=== PATIENT | female | born 1955 | race Caucasian/White ===

== ENCOUNTER → 2017-01-14 | Outpatient (CLI) | payer OTHER ==
--- NOTE | 2017-01-14 12:08 | REPMRS ---
Patient History The patient states she has not had a clinical breast exam in over a year. No known family history of cancer. Took estrogen for 4 months. Digital Mammo Screening Bilat: January 14, 2017 - Exam #: [id number] Bilateral CC and MLO view(s) were taken. Technologist: Susan Campbell Technologist Prior study comparison: January 09, 2016, bilateral digital mammo screening bilat performed at [facility]. December 27, 2014, bilateral digital mammo screening bilat performed at [facility]. FINDINGS: There are scattered fibroglandular densities. There has been no change in the appearance of the mammogram from the prior studies. There is a mild amount of scattered fibroglandular density which is fairly symmetric. There is no interval development of dominant mass, architectural distortion, or clustered microcalcification suggestive of malignancy. ASSESSMENT: BI-RADS/ACR category 1 mammogram. Negative. Recommendation Routine screening mammogram in 1 year (for women over age 40). This mammogram was interpreted with the aid of an FDA-approved computer-aided dectection system. Electronically Signed By: Pietro Phipps MD 01/14/17 [id number]
== END ==
LOC: M RAD 10:30
PROVIDERS: ATTEND Nurse Practitioner Family
DX: Z12.31 Encounter for screening mammogram for malignant neoplasm of breast (principal); Z79.899 Other long term (current) drug therapy

== ENCOUNTER → 2018-02-07 | Outpatient (CLI) | payer OTHER | LOC: M RAD 09:45 | DX: Z12.31 Encounter for screening mammogram for malignant neoplasm of breast (principal) | CPT/HCPCS: 77067 ==

== ENCOUNTER → 2019-02-12 | Outpatient (CLI) | payer OTHER ==
--- NOTE | 2019-02-12 13:56 | REPMRS ---
Patient History The patient states she has not had a clinical breast exam in over a year. No known family history of cancer. Took estrogen for 4 months. Digital Mammo Screening Bilat: February 12, 2019 - Exam #: [id number] Bilateral CC and MLO view(s) were taken. Technologist: Anna Bustillos, Technologist Prior study comparison: February 07, 2018, bilateral digital mammo screening bilat performed at [facility]. January 14, 2017, bilateral digital mammo screening bilat performed at [facility]. FINDINGS: The breast tissue is heterogeneously dense. This may lower the sensitivity of mammography. There has been no change in the appearance of the mammogram from the prior studies. There is a moderate amount of residual fibroglandular tissue which is fairly symmetric. There is no interval development of dominant mass, areas of architectural distortion, or clustered microcalcification typical of malignancy. Assessment: BI-RADS/ACR category 1 mammogram. Negative Mammogram. Recommendation Routine screening mammogram in 1 year (for women over age 40). This mammogram was interpreted with the aid of an FDA-approved computer-aided dectection system. Electronically Signed By: Osmar Obando MD 02/12/19 [id number]
== END ==
LOC: M RAD 10:11
PROVIDERS: ATTEND Internal Medicine
DX: Z12.31 Encounter for screening mammogram for malignant neoplasm of breast (principal)

== ENCOUNTER → 2019-02-26 | Outpatient (CLI) | payer OTHER ==
[~2019-02-26] MED LIST: ISOVUE-370 76% 100ML VIAL (Q9967) As Ordered ONE
--- NOTE | 2019-02-27 17:31 | REP ---
Clinical: Solitary pulmonary nodule. Technique: Axial contrast enhanced images from the thoracic inlet to the upper abdomen with coronal and sagittal re-formations. Comparison: None. Findings: Mild biapical scarring and scattered chronic age-related interstitial changes. No consolidation, obvious nodule or mass lesion appreciated. No pleural effusion. No pneumothorax. Tracheobronchial tree is patent. No obvious axillary, hilar, or mediastinal adenopathy. The mediastinum demonstrates minimal atherosclerotic changes without aortic aneurysm/dissection, cardiomegaly or pericardial effusion. No focal osseous abnormality appreciated. Limited upper abdomen demonstrates normal bilateral adrenal glands. Impression: No obvious acute mediastinal or pleuroparenchymal process appreciated. No prior examination is available for comparison. Electronically Signed by Sammy Quintana MD 02/27/2019 05:22 P
== END ==
LOC: M RAD 09:24
PROVIDERS: ATTEND Student in an Organized Health Care Education/Training Program
DX: Z87.09 Personal history of other diseases of the respiratory system (principal)
CPT/HCPCS: 71260; Q9967

== ENCOUNTER → 2019-06-01 | Outpatient (REF) | payer OTHER | LOC: M SFHCLERA 12:17 | PROVIDERS: ATTEND Family Medicine | DX: R20.2 Paresthesia of skin (principal); Z53.9 Procedure and treatment not carried out, unspecified reason ==

== ENCOUNTER → 2020-03-09 | Outpatient (CLI) | payer MEDICARE, OTHER ==
--- NOTE | 2020-03-09 14:50 | REPMRS ---
Patient History The patient states she has not had a clinical breast exam in over a year. No known family history of cancer. Took estrogen for 4 months. Digital Woman Screen Mammo: March 09, 2020 - Exam #: [id number] Bilateral CC and MLO view(s) were taken. Technologist: Anna Bustillos, Technologist Prior study comparison: February 12, 2019, bilateral digital mammo screening bilat, performed at [facility]. February 07, 2018, bilateral digital mammo screening bilat, performed at [facility]. January 14, 2017, bilateral digital mammo screening bilat, performed at [facility]. FINDINGS: The breast tissue is almost entirely fat. The Volpara volumetric breast density category is: A. There has been no change in the appearance of the mammogram from the prior studies. There is no interval development of dominant mass, architectural distortion, or grouped microcalcification typical of malignancy. 3-D tomosynthesis shows no additional findings. Assessment: BI-RADS/ACR category 1 mammogram. Negative Mammogram. Recommendation Routine screening mammogram of both breasts in 1 year (for women over age 40). This patient's Lifetime Breast Cancer RIsk is estimated at 5.4 %. This mammogram was interpreted with the aid of an FDA-approved computer-aided dectection system. Electronically Signed By: Pietro Phipps MD 03/09/20 [id number]
== END ==
LOC: M WHC 13:59
PROVIDERS: ATTEND Family Medicine
DX: Z12.31 Encounter for screening mammogram for malignant neoplasm of breast (principal)

== ENCOUNTER → 2021-03-03 | Outpatient (CLI) | payer MEDICARE, OTHER ==
--- NOTE | 2021-03-03 13:57 | REPMRS ---
Patient History The patient states she has not had a clinical breast exam in over a year. Patient is postmenopausal. Family history of prostate cancer at age 45 in brother. Took estrogen for 4 months. Patient states no breast complaints today. Patient has signed MRS History Sheet. Digital Woman Screen Mammo: March 03, 2021 - Exam #: [id number] Bilateral CC and MLO view(s) were taken. Technologist: Susan Campbell, Technologist Prior study comparison: March 09, 2020, bilateral digital woman screen mammo performed at [facility] and [facility]. February 12, 2019, bilateral digital mammo screening bilat, performed at [facility]. February 07, 2018, bilateral digital mammo screening bilat, performed at [facility]. FINDINGS: There are scattered fibroglandular densities. The Volpara volumetric breast density category is:B. There has been no change in the appearance of the mammogram from the prior studies. There is a mild amount of scattered fibroglandular density which is fairly symmetric. There is no interval development of dominant mass, architectural distortion, or grouped microcalcification suggestive of malignancy. 3-D tomosynthesis shows no additional findings. Assessment: BI-RADS/ACR category 1 mammogram. Negative Mammogram. Recommendation Routine screening mammogram of both breasts in 1 year (for women over age 40). This patient's [facility] Lifetime Breast Cancer Risk is estimated at 5.1 %. This mammogram was interpreted with the aid of an FDA-approved computer-aided dectection system. Electronically Signed By: Pietro Phipps MD 03/03/21 [id number]
== END ==
LOC: M WHC 12:48
PROVIDERS: ATTEND Nurse Practitioner Family
DX: Z12.31 Encounter for screening mammogram for malignant neoplasm of breast (principal); Z80.42 Family history of malignant neoplasm of prostate

== ENCOUNTER → 2021-03-29 | Outpatient (CLI) | payer MEDICARE, OTHER ==
--- NOTE | 2021-03-29 16:31 | DEXAMM ---
INDICATION: AGE RELATED OSTEOPOROSIS/M81.0. COMPARISON: 03/12/2019, 07/27/2013. TECHNIQUE: Bone density was measured using dual-energy x-ray absorptiometry (DEXA). FINDINGS: AP SPINE L1-L4 BMD 0.905 g/cm2 Young Adult T-Score -2.3 Age Matched Z-Score -0.7. LT FEMUR, TOTAL BMD 0.804 g/cm2 Young Adult T-Score -1.6 Age Matched Z-Score -0.4. LT NECK BMD 0.712 g/cm2 Young Adult T-Score -2.3 Age Matched Z-Score -0.8. RT FEMUR, TOTAL BMD 0.808 g/cm2 Young Adult T-Score -1.6 Age Matched Z-Score -0.3. RT NECK BMD 0.733 g/cm2 Young Adult T-Score -2.2 Age Matched Z-Score -0.7. IMPRESSION: There is low bone density of the spine. There is low bone density of the left hip. There is low bone density of the right hip. The density of the spine has increased 28.4% since the initial exam on 07/27/2013. The density of the spine increased 0.6% since most recent exam on 03/12/2019. The density of the left hip has increased 7.9% since initial exam on 07/27/2013. The density of the left hip has increased 2.2% since most recent exam on 03/12/2019. The density of the right hip has increased 6.6% since the initial exam on 07/27/2013. The density of the right hip has decreased 0.4% since the most recent exam on 03/12/2019. FOLLOW-UP: Recommendation for the next bone density exam: 2 years. <Electronically signed by Osmar Obando > 03/29/21 [id number]
== END ==
LOC: M WHC 13:08
PROVIDERS: ATTEND Nurse Practitioner Family
DX: M81.0 Age-related osteoporosis without current pathological fracture (principal); M85.88 Other specified disorders of bone density and structure, other site; M85.851 Other specified disorders of bone density and structure, right thigh; M85.852 Other specified disorders of bone density and structure, left thigh

== ENCOUNTER → 2022-04-02 | Outpatient (CLI) | payer MEDICARE, OTHER | LOC: M WHC 12:06 | PROVIDERS: ATTEND Student in an Organized Health Care Education/Training Program | DX: Z12.31 Encounter for screening mammogram for malignant neoplasm of breast (principal); R92.2 Inconclusive mammogram ==

== ENCOUNTER → 2022-04-24 | Outpatient (CLI) | payer MEDICARE, OTHER | LOC: M WHC 09:51 | PROVIDERS: ATTEND Student in an Organized Health Care Education/Training Program | DX: N63.12 Unspecified lump in the right breast, upper inner quadrant (principal) | CPT/HCPCS: 76642; 77065; G0279 ==

== ENCOUNTER 2022-12-30 16:07 | Emergency (ER) | payer MEDICARE, OTHER ==
[~2022-12-30] VITALS: Ht 172.7 cm; Wt 92.7 kg
[2022-12-30 18:21] LABS: BASO % 0.3 % (0.0-1.0); EOS % 0.3 % (0.0-3.0); HEMATOCRIT 39.2 % (36.0-47.0); HEMOGLOBIN 13.2 g/dl (12.0-15.5); LYMPH # 1.5 10^3/uL (1.5-5.0); LYMPH % 12.5 % (24.0-44.0); MEAN CORPUSCULAR HEMOGLOBIN 32.8 pg (27.0-33.0); MEAN CORPUSCULAR HGB CONC 33.7 g/dl (32.0-36.5); MEAN CORPUSCULAR VOLUME 97.5 fl (80.0-96.0); MONO # 0.7 10^3/uL (0.0-0.8); MONO % 5.8 % (2.0-8.0); NEUTROPHILS # 9.6 10^3/uL (1.5-8.5); NEUTROPHILS % 80.7 % (36.0-66.0); PLATELET COUNT, AUTOMATED 245 10^3/uL (150-450); RED BLOOD COUNT 4.02 10^6/uL (4.00-5.40); WHITE BLOOD COUNT 11.9 10^3/uL (4.0-10.0)
[2022-12-30 18:32] LABS: INR 0.87
[2022-12-30 18:33] LABS: PARTIAL THROMBOPLASTIN TIME 28.5 SECONDS (24.8-34.2)
[2022-12-30 18:49] LABS: BLOOD UREA NITROGEN 15 MG/DL (9-23); CALCIUM LEVEL 9.4 MG/DL (8.3-10.6); CARBON DIOXIDE LEVEL 30 MMOL/L (20-31); CHLORIDE LEVEL 106 MMOL/L (98-107); CREATININE FOR GFR 0.86 MG/DL (0.55-1.30); GLOMERULAR FILTRATION RATE > 60.0 (>45); GLUCOSE, FASTING 105 MG/DL (74-106); POTASSIUM SERUM 4.3 MMOL/L (3.5-5.1); SODIUM LEVEL 144 MMOL/L (136-145)
[2022-12-30 19:05] LABS: RSV AMPLIFICATION NEGATIVE (NEGATIVE)
[2022-12-30 20:23] VITALS: BP 142/68
[2023-01-01] MEDS ORDERED: CALC1TAB42 PO (15:06)
[2023-01-01] MEDS ORDERED: SYNT50TA PO (15:06)
[2023-01-01] MEDS ORDERED: VITA-199 PO (15:06)
[2023-01-01] MEDS ORDERED: PRAV40TA2 PO (15:06)
[2023-01-01] MEDS ORDERED: COZA50TA PO (15:06)
== END 2022-12-30 20:26 | disposition home or self-care (01) ==
LOC: M ED 16:07
DX: S52.001A Unspecified fracture of upper end of right ulna, initial encounter for closed fracture (principal); W11.XXXA Fall on and from ladder, initial encounter; Y92.009 Unspecified place in unspecified non-institutional (private) residence as the place of occurrence of the external cause; E03.9 Hypothyroidism, unspecified

== ENCOUNTER 2023-01-02 06:25 | Day surgery (SDC) | payer MEDICARE, OTHER ==
[~2023-01-02] VITALS: Ht 172.7 cm; Wt 91.2 kg
[~2023-01-02 06:25] MED LIST changes: +CALC1TAB42 PO; +COZA50TA PO; -ISOVUE-370 76% 100ML VIAL (Q9967) As Ordered ONE; +LR 1,000 ML IV SCH; +PRAV40TA2 PO; +SYNT50TA PO; +VITA-199 PO
[2023-01-02] MEDS ORDERED: propofoL 200 MG/20 ML VIAL As Ordered ONE (06:58)
[2023-01-02] MEDS ORDERED: ONDANSETRON 4MG 2ML VIAL As Ordered ONE (06:58)
[2023-01-02] MEDS ORDERED: LIDOCAINE 2% 100MG/5ML SDV (FOR ANES.) As Ordered ONE (06:58)
[2023-01-02] MEDS ORDERED: ceFAZolin SOD 2 GM in IV 1 EA IV ONE (07:45)
[2023-01-02] MEDS ORDERED: ceFAZolin 1GM VIAL As Ordered ONE (08:13)
[2023-01-02] MEDS ORDERED: fentaNYL 100 MCG/2 ML INJECTION As Ordered ONE (08:21)
[2023-01-02] MEDS ORDERED: MIDAZOLAM INJ 2MG/2ML VIAL As Ordered ONE (08:21)
[2023-01-02] MEDS ORDERED: SUGAMMADEX SODIUM 500 MG/5 ML VIAL (BRIDION) As Ordered ONE (08:21)
[2023-01-02] MEDS ORDERED: ROCURONIUM BROMIDE 50MG/5ML VIAL As Ordered ONE (08:21)
[2023-01-02] MEDS ORDERED: ACETAMINOPHEN 1000MG 100ML IV BAG As Ordered ONE (09:03)
[2023-01-02] MEDS ORDERED: BACITRACIN OINTMENT 30GM TUBE As Ordered ONE (09:49)
[2023-01-02] MEDS ORDERED: KETOROLAC 60MG 2ML VIAL As Ordered ONE (10:05)
[2023-01-02] MEDS ORDERED: BUPIVACAINE HCL 0.25% 30ML VIAL As Ordered ONE (10:05)
[2023-01-02] MEDS ORDERED: ONDANSETRON 4MG 2ML VIAL IV PRN (10:30)
[2023-01-02] MEDS ORDERED: MORPHINE 2 MG/ML 1ML VIAL IV PRN (10:30)
[2023-01-02] MEDS ORDERED: fentaNYL 100 MCG/2 ML INJECTION IV PRN (10:30)
[2023-01-02] MEDS ORDERED: PERC5TAB12 PO (10:58)
[2023-01-02] MEDS: oxyCODONE 5MG TAB PO PRN ×2 (11:20→11:45)
[2023-01-02 11:50] VITALS: BP 142/72
== END 2023-01-02 12:25 | disposition home or self-care (01) ==
LOC: M SDC 06:25
PROVIDERS: ATTEND Orthopaedic Surgery Hand Surgery
DX: S52.031A Displaced fracture of olecranon process with intraarticular extension of right ulna, initial encounter for closed fracture (principal); W19.XXXA Unspecified fall, initial encounter; Y92.89 Other specified places as the place of occurrence of the external cause; Y93.9 Activity, unspecified; Y99.9 Unspecified external cause status; I10 Essential (primary) hypertension; E03.9 Hypothyroidism, unspecified; Z79.899 Other long term (current) drug therapy
CPT/HCPCS: 24685; 76000; C1713; J0131; J0690; J1100; J1885; J2250; J2405; J3010

== ENCOUNTER → 2023-01-14 | Outpatient (CLI) | payer MEDICARE, OTHER ==
[~2023-01-14] MED LIST changes: -LR 1,000 ML IV SCH; +PERC5TAB12 PO
== END ==
LOC: M SOG 10:49
PROVIDERS: ATTEND Physician Assistant
DX: S52.031A Displaced fracture of olecranon process with intraarticular extension of right ulna, initial encounter for closed fracture (principal); X58.XXXA Exposure to other specified factors, initial encounter; Y92.9 Unspecified place or not applicable; Y93.9 Activity, unspecified; Y99.9 Unspecified external cause status

== ENCOUNTER → 2023-01-31 | Outpatient (CLI) | payer MEDICARE, OTHER | LOC: M EKG 12:06 | PROVIDERS: ATTEND Student in an Organized Health Care Education/Training Program | DX: R94.31 Abnormal electrocardiogram [ECG] [EKG] (principal) ==

== ENCOUNTER → 2023-02-14 | Outpatient (CLI) | payer MEDICARE, OTHER ==
[~2023-02-14] MED LIST changes: -COZA50TA PO; +LOSA-528 PO
== END ==
LOC: M SOG 08:52
PROVIDERS: ATTEND Physician Assistant
DX: S52.031D Displaced fracture of olecranon process with intraarticular extension of right ulna, subsequent encounter for closed fracture with routine healing (principal)

== ENCOUNTER → 2023-04-04 | Outpatient (CLI) | payer MEDICARE, OTHER | LOC: M WHC 12:29 | PROVIDERS: ATTEND Nurse Practitioner Family | DX: M81.0 Age-related osteoporosis without current pathological fracture (principal) ==

== ENCOUNTER → 2023-04-22 | Outpatient (CLI) | payer MEDICARE, OTHER ==
[2023-04-22 11:27] LABS: BASO % 0.6 % (0.0-1.0); EOS # 0.1 10^3/uL (0.0-0.5); EOS % 1.6 % (0.0-3.0); HEMATOCRIT 41.1 % (36.0-47.0); HEMOGLOBIN 13.7 g/dl (12.0-15.5); LYMPH # 2.4 10^3/uL (1.5-5.0); MEAN CORPUSCULAR HEMOGLOBIN 31.9 pg (27.0-33.0); MEAN CORPUSCULAR HGB CONC 33.3 g/dl (32.0-36.5); MEAN CORPUSCULAR VOLUME 95.8 fl (80.0-96.0); MONO # 0.5 10^3/uL (0.0-0.8); NEUTROPHILS # 2.2 10^3/uL (1.5-8.5); NEUTROPHILS % 42.6 % (36.0-66.0); PLATELET COUNT, AUTOMATED 254 10^3/uL (150-450); RED BLOOD COUNT 4.29 10^6/uL (4.00-5.40); WHITE BLOOD COUNT 5.1 10^3/uL (4.0-10.0)
[2023-04-22 11:57] LABS: ALBUMIN 3.7 G/DL (3.2-5.2); ALKALINE PHOSPHATASE 84 U/L (46-116); ALT/SGPT 36 U/L (7.0-40); AST/SGOT 16 U/L (<34); BILIRUBIN,TOTAL 0.4 MG/DL (0.3-1.2); BLOOD UREA NITROGEN 17 MG/DL (9-23); CALCIUM LEVEL 9.1 MG/DL (8.3-10.6); CARBON DIOXIDE LEVEL 28 MMOL/L (20-31); CHLORIDE LEVEL 106 MMOL/L (98-107); CHOLESTEROL LEVEL 217 MG/DL (<200); CHOLESTEROL RISK RATIO 3.88 (<5); CREATININE FOR GFR 0.83 MG/DL (0.55-1.30); GLOMERULAR FILTRATION RATE > 60.0 (>45); GLUCOSE, FASTING 86 MG/DL (74-106); HDL CHOLESTEROL 55.9 MG/DL (>40); LDL CHOLESTEROL 123.7 MG/DL (<100); NON-HDL-C 161.1 MG/DL; POTASSIUM SERUM 4.2 MMOL/L (3.5-5.1); SODIUM LEVEL 139 MMOL/L (136-145); TOTAL PROTEIN 6.8 G/DL (5.7-8.2); TRIGLYCERIDES LEVEL 187 MG/DL (<150)
[2023-04-22 11:58] LABS: THYROID STIMULATING HORMONE 1.616 uIU/ML (0.55-4.78)
== END ==
LOC: M LAB 10:02
PROVIDERS: ATTEND Internal Medicine Cardiovascular Disease
DX: R06.02 Shortness of breath (principal); E78.00 Pure hypercholesterolemia, unspecified; R94.31 Abnormal electrocardiogram [ECG] [EKG]; E03.9 Hypothyroidism, unspecified; R05.3 Chronic cough; I10 Essential (primary) hypertension; I34.0 Nonrheumatic mitral (valve) insufficiency

== ENCOUNTER → 2023-08-06 | Outpatient (CLI) | payer MEDICARE, OTHER | LOC: M WHC 12:27 | PROVIDERS: ATTEND Physician Assistant | DX: Z12.31 Encounter for screening mammogram for malignant neoplasm of breast (principal) ==

== ENCOUNTER → 2024-08-07 | Outpatient (CLI) | payer MEDICARE, OTHER | LOC: M WHC 12:53 | PROVIDERS: ATTEND Internal Medicine | DX: Z12.31 Encounter for screening mammogram for malignant neoplasm of breast (principal); R92.323 Mammographic fibroglandular density, bilateral breasts ==

== ENCOUNTER → 2025-06-15 | Outpatient (CLI) | payer MEDICARE, OTHER ==
[~2025-06-15] MED LIST changes: -PRAV40TA2 PO; +PRAV40TA85 PO
== END ==
LOC: M WHC 09:34
PROVIDERS: ATTEND Nurse Practitioner Family
DX: M85.89 Other specified disorders of bone density and structure, multiple sites (principal)

== ENCOUNTER → 2025-08-16 | Outpatient (CLI) | payer MEDICARE, OTHER | LOC: M WHC 14:03 | PROVIDERS: ATTEND Internal Medicine | DX: Z12.31 Encounter for screening mammogram for malignant neoplasm of breast (principal); R92.323 Mammographic fibroglandular density, bilateral breasts ==